=== PATIENT | male | born 1950 | race Caucasian/White ===

== ENCOUNTER 2017-05-18 10:43 | Inpatient (IN) | payer OTHER ==
[2017-05-18 11:25] LABS: BASOPHIL 0.5 % (0-2.0); EOSINOPHIL 1.4 % (0-4.5); MCH 30.2 pg (25.7-33.7); MCHC 33.2 g/dl (32.0-35.9); NEUTROPHILS 61.1 % (42.8-82.8); PLATELET COUNT 176 K/MM3 (134-434); RDW 14.6 % (11.9-15.9); WHITE BLOOD COUNT 7.7 K/mm3 (4.0-10.0)
--- NOTE | 2017-05-18 11:34 | PDOC ---
Attending Attestation - Resident Resident Name: Mercedes Lerner - ED Attending Attestation I have performed the following: I have examined & evaluated the patient, The case was reviewed & discussed with the resident, I agree w/resident's findings & plan, Exceptions are as noted - HPI HPI: 05/18/17 11:34 67-year-old male with no medical history presents with dyspnea on exertion. Stated at the symptoms were worse over the 2 months but particularly today. Denies chest pain. Reports some increasing abdominal distention but denies orthopnea or proximal nocturnal dyspnea. Denies abdominal tenderness. - Physicial Exam PE: 05/18/17 11:35 GENERAL: Awake, alert, and fully oriented, in no acute distress. HEAD: No signs of trauma EYES: PERRLA, EOMI, sclera anicteric, conjunctiva clear ENT: Auricles normal inspection, hearing grossly normal, nares patent, oropharynx clear without exudates. NECK: Normal ROM, supple, no lymphadenopathy, JVD, or masses LUNGS: Breath sounds equal, clear to auscultation bilaterally. No wheezes, and no crackles HEART: Regular rate and rhythm, normal S1 and S2, no murmurs, rubs or gallops. Bradycardic ABDOMEN: Soft, nontender, normoactive bowel sounds. No guarding, no rebound. No masses EXTREMITIES: Normal range of motion. No clubbing or cyanosis. No cords, erythema , or tenderness. Trace lower extremity edema b/l. NEUROLOGICAL: Cranial nerves II through XII grossly intact. Normal speech, normal gait SKIN: Warm, Dry, normal turgor, no rashes or lesions noted. - Medical Decision Making 05/18/17 11:35 Vital Signs Temp Pulse Resp BP Pulse Ox 98 F 40 L 18 158/92 99 05/18/17 10:48 05/18/17 10:48 05/18/17 10:48 05/18/17 10:48 05/18/17 10:48 Patient with a Mobitz type II. Pacer pads placed on. Labs including lites like to troponin ordered. Patient's family requests Dr. Brooke for cardiology. Will contact ICU for admission. Pt's BP stable at the moment and patient mentating. No chest pain. 05/18/17 12:57 CBC, BMP 05/18/17 11:19 05/18/17 11:19 CMP Sodium 139 mmol/L (136-145) 05/18/17 11:19 Potassium 4.4 mmol/L (3.5-5.1) 05/18/17 11:19 Chloride 103 mmol/L (98-107) 05/18/17 11:19 Carbon Dioxide 25 mmol/L (21-32) 05/18/17 11:19 Anion Gap 11 (8-16) 05/18/17 11:19 BUN 17 mg/dL (7-18) 05/18/17 11:19 Creatinine 1.2 mg/dL (0.7-1.3) 05/18/17 11:19 Creat Clearance w eGFR > 60 (>60) 05/18/17 11:19 Random Glucose 121 mg/dL (74-106) H 05/18/17 11:19 Calcium 9.2 mg/dL (8.5-10.1) 05/18/17 11:19 Phosphorus 3.4 mg/dL (2.5-4.9) 05/18/17 11:19 Magnesium 2.3 mg/dL (1.8-2.4) 05/18/17 11:19 Total Bilirubin 0.5 mg/dL (0.2-1.0) 05/18/17 11:19 AST 45 U/L (15-37) H 05/18/17 11:19 ALT 79 U/L (12-78) H 05/18/17 11:19 Alkaline Phosphatase 59 U/L (45-117) 05/18/17 11:19 Creatine Kinase 101 IU/L (39-308) 05/18/17 11:19 Troponin I < 0.02 ng/ml (0.00-0.05) 05/18/17 11:19 B-Natriuretic Peptide 270.85 pg/ml (5-125) H 05/18/17 11:19 Total Protein 7.2 g/dl (6.4-8.2) 05/18/17 11:19 Albumin 3.7 g/dl (3.4-5.0) 05/18/17 11:19 Pt seen by both DR. Huber (cards) and DR. Tucker (ICU). Accepted to the ICU. Case accepted by symphony service. Admitted to ICU under their care. Heart Score/ECG Review #1 ECG reviewed & interpreted by me at: 11:15 05/18/17 11:33 Sinus 41 with Mobitz type 2 2:1 AV conduction, RSR' in V1, no std/se, QTC 463 msec
[2017-05-18 11:37] LABS: INR 0.98 (0.82-1.09); PROTHROMBIN TIME (PATIENT) 10.8 SEC (9.98-11.88)
[2017-05-18 11:52] LABS: CREATININE 1.2 mg/dL (0.7-1.3); SGPT/ALT 79 U/L (12-78)
[2017-05-18 11:54] LABS: ALK PHOS 59 U/L (45-117); BILIRUBIN,TOTAL 0.5 mg/dL (0.2-1.0); TOT PROT 7.2 g/dl (6.4-8.2); TROPONIN I < 0.02 ng/ml (0.00-0.05)
[2017-05-18 11:55] LABS: ALBUMIN 3.7 g/dl (3.4-5.0); ANION GAP 11 (8-16); CALCIUM 9.2 mg/dL (8.5-10.1); CO2 25 mmol/L (21-32); GLUCOSE,RANDOM 121 mg/dL (74-106)
[2017-05-18 11:57] LABS: SGOT/AST 45 U/L (15-37)
--- NOTE | 2017-05-18 12:22 | EKG ---
Test Reason : Blood Pressure : / mmHG Vent. Rate : 041 BPM Atrial Rate : 081 BPM P-R Int : 160 ms QRS Dur : 122 ms QT Int : 562 ms P-R-T Axes : 060 067 015 degrees QTc Int : 463 ms SINUS RHYTHM WITH 2ND DEGREE A-V BLOCK WITH 2:1 A-V CONDUCTION POSSIBLE LEFT ATRIAL ENLARGEMENT RIGHT BUNDLE BRANCH BLOCK ABNORMAL ECG NO PREVIOUS ECGS AVAILABLE ER STAFF NOTIFIED. Confirmed by LOUIE GU MD ([id number]) on 05/18/2017 12:21:51 PM Referred By: Confirmed By:LOUIE GU MD
--- NOTE | 2017-05-18 12:26 | CON.CARD ---
Consult Consult Specialty:: Cardiology Referred by:: Dr. Tray Brasher Reason for Consultation:: Cardiac evaluation for secondary mobitz 2 AV block - History of Present Illness Chief Complaint: Shortness of breath and chest discomfort History of Present Illness: Patient is a 67 year old male with no significant past medical history who presents with complaints of shortness of breath and intermittent chest discomfort for the past 2 months. His symptoms got worse that made him come into ER today. ECG demonstrates sinus rhythm with secondary AV block, mobitz 2 ( 2:1). Cardiology consultation was called for further evaluation. Currently, he denies paroxysmal nocturnal dyspnea or orthopnea. He denies fever or chills. He denies headache or lightheadedness. He denies prior syncopal episodes. He works in the [employer] department at [employer]. - History Source History Provided By: Patient, Family Member Limitations to Obtaining History: No Limitations - Past Surgical History Additional Surgical History: Carbuncle removal - Alcohol/Substance Use Hx Alcohol Use: Yes History of Substance Use: reports: None - Smoking History Smoking history: Never smoked - Social History Usual Living Arrangement: With Spouse Home Medications - Allergies Allergies/Adverse Reactions: Allergies Allergy/AdvReac Type Severity Reaction Status Date / Time No Known Allergies Allergy Verified 05/18/17 10:54 - Home Medications Home Medications: Ambulatory Orders NK [No Known Home Medication] 05/18/17 Review of Systems - Review of Systems Constitutional: denies: Chills, Fever Cardiovascular: reports: Chest Pain, Shortness of Breath. denies: Palpitations Respiratory: reports: SOB, SOB on Exertion. denies: Cough, Hemoptysis, Orthopnea, PND Gastrointestinal: denies: Abdominal Pain, Constipation, Diarrhea, Melena, Nausea , Rectal Bleeding, Vomiting Musculoskeletal: denies: Joint Pain Neurological: denies: Dizziness, Headache, Seizure, Syncope Vital Signs: Vital Signs Temperature 98 F 05/18/17 10:48 Pulse Rate 40 L 05/18/17 11:39 Respiratory Rate 16 05/18/17 11:39 Blood Pressure 150/80 05/18/17 11:39 O2 Sat by Pulse Oximetry (%) 100 05/18/17 11:56 Neck: Yes: Supple Respiratory: Yes: CTA Bilaterally Gastrointestinal: Yes: Normal Bowel Sounds, Soft. No: Tenderness Cardiovascular: Yes: Regular Rate and Rhythm JVD: No Carotid Bruit: No PMI: Non-Displaced Heart Sounds: Yes: S1, S2 Murmur: No: Systolic Murmur, Diastolic Murmur Edema: No - Other Data Labs, Other Data: CBC, BMP 05/18/17 11:19 05/18/17 11:19 Troponin, BNP 05/18/17 05/18/17 11:19 11:19 Troponin I < 0.02 B-Natriuretic Peptide 270.85 H Laboratory Results - last 24 hr 05/18/17 05/18/17 05/18/17 11:19 11:19 11:19 WBC 7.7 RBC 4.79 Hgb 14.4 Hct 43.5 MCV 91.0 MCH 30.2 MCHC 33.2 RDW 14.6 Plt Count 176 MPV 10.0 Neutrophils % 61.1 Lymphocytes % 25.5 Monocytes % 11.5 H Eosinophils % 1.4 Basophils % 0.5 INR 0.98 Sodium 139 Potassium 4.4 Chloride 103 Carbon Dioxide 25 Anion Gap 11 BUN 17 Creatinine 1.2 Creat Clearance w eGFR > 60 Random Glucose 121 H Calcium 9.2 Total Bilirubin 0.5 AST 45 H ALT 79 H Alkaline Phosphatase 59 Creatine Kinase Troponin I B-Natriuretic Peptide 270.85 H Total Protein 7.2 Albumin 3.7 Sinus rhythm with secondary heart block with 2:1 AV block Echo: Pending Problem List - Problems (1) AV block, Mobitz II Code(s): I44.1 - ATRIOVENTRICULAR BLOCK, SECOND DEGREE (2) Chest pain Code(s): R07.9 - CHEST PAIN, UNSPECIFIED Qualifiers: Chest pain type: unspecified Qualified Code(s): R07.9 - Chest pain, unspecified (3) Dyspnea Code(s): R06.00 - DYSPNEA, UNSPECIFIED Qualifiers: Dyspnea type: shortness of breath Qualified Code(s): R06.02 - Shortness of breath Assessment/Plan 1. Dyspnea and chest pain 2. Secondary AV block - Mobitz 2:1 PLAN: 1. Admit to ICU 2. Serial cardiac enzymes 3. Transthoracic echocardiography to assess LV and valvular function 4. Permanent pacemaker insertion. Spoke with Dr. Del Kraus (hvac lead ) for PPM insertion 5. Etiology of AV block is to be explored. Rule out structural heart disease. Further plans are to follow Andrew Huber MD
[2017-05-18 12:48] LABS: MAGNESIUM 2.3 mg/dL (1.8-2.4); PHOSPHOROUS 3.4 mg/dL (2.5-4.9)
--- NOTE | 2017-05-18 12:58 | PDOC ---
History of Present Illness - General Chief Complaint: Shortness of Breath Stated Complaint: SOB Time Seen by Provider: 05/18/17 11:04 History Source: Patient Exam Limitations: No Limitations - History of Present Illness Initial Comments: 05/18/17 14:23 CC: Acute exacerbation of shortness of breath Patient is a 67 y.o. male with no PMH who presents to our facility c/o shortness of breath. Patient states he was mowing the lawn today when he suddenly felt short of breath and had some related "pulsing" chest pain that was 4/10, non-radiating. Patient and patient's (@ bedside) note patient has been c/o shortness of breath for the last 2 months, often with exertion and occasionally at rest. Patient states the chest pain is intermittent, only ocurring on 2-3 prior occasions. Patient also notes as associated abdominal distention which he believes has been present for 3-4 months. Patient notes he had recently traveled in the [place] which included a two hour plane ride. Patient also notes he takes Fish Oil and a dietary pineapple supplement daily however does not take any active prescription medications. PMH: None Past surgical: R buttock carbuncle removal FH: Denies HTN and CVD SH: (-) cigarettes; (+) alcohol - 1 glass wine daily; (-) marijuana/cocaine/ heroin NKDA Past History - Past Medical History Allergies/Adverse Reactions: Allergies Allergy/AdvReac Type Severity Reaction Status Date / Time No Known Allergies Allergy Verified 05/18/17 10:54 Home Medications: Ambulatory Orders NK [No Known Home Medication] 05/18/17 - Psycho/Social/Smoking Cessation Hx Suicidal Ideation: No Smoking History: Never smoked Information on smoking cessation initiated: No Hx Alcohol Use: Yes Review of Systems - Review of Systems Constitutional: No: Chills, Diaphoresis, Malaise, Night Sweats HEENTM: No: Blurred Vision, Double Vision, Hearing Loss, Throat Pain Respiratory: Yes: Shortness of Breath, SOB with Exertion. No: Cough, Stridor, Wheezing Cardiac (ROS): Yes: Chest Pain ("Pulsing" Non-radiating chest pain). No: Edema , Palpitations, Syncope ABD/GI: Yes: Abdominal Distended. No: Constipated, Diarrhea, Nausea, Vomiting Musculoskeletal: No: Back Pain, Gout, Muscle Pain, Muscle Weakness Integumentary: No: Bruising, Dryness, Erythema, Pruritus Neurological: No: Headache, Numbness, Tingling, Tremors Psychiatric: No: Anxiety, Depression All Other Systems: Reviewed and Negative *Physical Exam - Vital Signs Last Vital Signs Temp Pulse Resp BP Pulse Ox 98 F 40 L 16 150/80 100 05/18/17 10:48 05/18/17 11:39 05/18/17 11:39 05/18/17 11:39 05/18/17 11:56 - Physical Exam General Appearance: Yes: Nourished, Appropriately Dressed HEENT: positive: EOMI Neck: positive: Trachea midline, Supple Respiratory/Chest: positive: Lungs Clear, Normal Breath Sounds, Other (Patient is breathing comfortably (no accessory muscle use, non-labored respirations) on room air) Cardiovascular: positive: Regular Rhythm, Regular Rate, S1, S2 Gastrointestinal/Abdominal: positive: Soft, Distended Extremity: positive: Normal Capillary Refill, Normal Inspection Integumentary: positive: Normal Color, Dry, Warm Neurologic: positive: alternative financing specialist II-XII NML intact, Fully Oriented, Alert ED Treatment Course - LABORATORY CBC & Chemistry Diagram: 05/18/17 11:19 05/18/17 11:19 - ADDITIONAL ORDERS Additional order review: Laboratory Results 05/18/17 05/18/17 05/18/17 11:19 11:19 11:19 INR 0.98 Sodium 139 Potassium 4.4 Chloride 103 Carbon Dioxide 25 Anion Gap 11 BUN 17 Creatinine 1.2 Creat Clearance w eGFR > 60 Random Glucose 121 H Calcium 9.2 Phosphorus 3.4 Magnesium 2.3 Total Bilirubin 0.5 AST 45 H ALT 79 H Alkaline Phosphatase 59 Creatine Kinase 101 Troponin I < 0.02 B-Natriuretic Peptide 270.85 H Total Protein 7.2 Albumin 3.7 05/18/17 11:19 RBC 4.79 MCV 91.0 MCHC 33.2 RDW 14.6 MPV 10.0 Neutrophils % 61.1 Lymphocytes % 25.5 Monocytes % 11.5 H Eosinophils % 1.4 Basophils % 0.5 - RADIOLOGY Radiology Studies Ordered: Category Date Time Status CHEST X-RAY PORTABLE* [RAD] Stat Radiology 05/18/17 11:14 Taken Medical Decision Making - Medical Decision Making 05/18/17 14:42 Patient's EKG was significant for Mobitz II (2nd degree AV block) and transcutaneous pacer was applied. Cardiology (Dr. Huber) and Dr. Banegas (ICU ) evaluated patient and patient was admitted to ICU under the care of Dr. Dias. Patient was counseled that he would likely require surgical intervention for pacemaker placement. *DC/Admit/Observation/Transfer Diagnosis at time of Disposition: Heart block AV second degree, AV block, Mobitz II - Discharge Dispostion Condition at time of disposition: Improved Admit: Yes - Referrals - Attestations Physician Attestion: 05/18/17 12:59 I, Dr. Mercedes Lerner, attest that this document has been prepared under my direction and personally reviewed by me in its entirety. I further attest, that it accurately reflects all work, treatment, procedures and medical decision -making performed by me.
--- NOTE | 2017-05-18 13:27 | HP ---
Admitting History and Physical - Primary Care Physician PCP: Ananda Sutherland - Admission Chief Complaint: Worsening dypsnea on exertion History of Present Illness: This is a 67 year old male with no reported medical history presented to the ED with worsening shortness of breath on exertion. He was mowing the lawn today and became acute shortness of breath to which it took 3-4 minutes for him to catch his breath. This shortness of breath has been worsening over the last 2 months and today his brought him in. He denies associated chest pain, visual changes, nausea, vomiting, pedal edema, changes in urinary habits. He dose think subjectively he has gained abdominal girth. 6 weeks ago he went to see his primary and had an EKG which he says reveled no acute changes, however he did not tell his PCP he was experiencing ongoing shortness of breath. He returned from the [facility] 2 days ago, while there he did have acute sob episodes at rest and while carrying luggage. ED Course: 1. EKG Mobchris 2:1 2. Pacer pads placed 3. 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 History of Recent Travel: Yes ([facility] ) Home Medications - Allergies Allergies/Adverse Reactions: Allergies Allergy/AdvReac Type Severity Reaction Status Date / Time No Known Allergies Allergy Verified 05/18/17 10:54 - Home Medications Home Medications: Ambulatory Orders NK [No Known Home Medication] 05/18/17 Review of Systems - Review of Systems Constitutional: reports: No Symptoms Eyes: reports: No Symptoms HENT: reports: No Symptoms Neck: reports: No Symptoms Cardiovascular: reports: No Symptoms Respiratory: reports: SOB, SOB on Exertion Gastrointestinal: reports: No Symptoms Genitourinary: reports: No Symptoms Musculoskeletal: reports: No Symptoms Integumentary: reports: No Symptoms Neurological: reports: No Symptoms Endocrine: reports: No Symptoms Hematology/Lymphatic: reports: No Symptoms Psychiatric: reports: No Symptoms Physical Examination Vital Signs: Vital Signs Temperature 98 F 05/18/17 10:48 Pulse Rate 40 L 05/18/17 11:39 Respiratory Rate 16 05/18/17 11:39 Blood Pressure 150/80 05/18/17 11:39 O2 Sat by Pulse Oximetry (%) 100 05/18/17 11:56 Constitutional: Yes: Calm Eyes: Yes: Conjunctiva Clear HENT: Yes: Atraumatic Neck: Yes: Supple Cardiovascular: Yes: Bradycardia, S1, S2 Respiratory: Yes: Regular, CTA Bilaterally Gastrointestinal: Yes: Normal Bowel Sounds, Soft Renal/: Yes: WNL Musculoskeletal: Yes: WNL Extremities: Yes: WNL Edema: No Peripheral Pulses WNL: Yes Neurological: Yes: Alert, Oriented, Cran Nerves II-XII Intact Psychiatric: Yes: Alert, Oriented Labs: CBC, BMP 05/18/17 11:19 05/18/17 11:19 Imaging - Results EKG: Report Reviewed, Image Reviewed Problem List - Problems (1) AV block, Mobitz II Code(s): I44.1 - ATRIOVENTRICULAR BLOCK, SECOND DEGREE (2) Dyspnea Code(s): R06.00 - DYSPNEA, UNSPECIFIED Qualifiers: Dyspnea type: shortness of breath Qualified Code(s): R06.02 - Shortness of breath Assessment/Plan Assessment: 67 year old male admitted with worsening SOB found to be in second degree heart block 2:1 conduction. Plan: 1. Second degree AVB 2:1 conduction - Maintain pacer pads - ECHO to assess LV function - ICU monitoring - Check TSH - Trop x2 negative - Pacemaker placement by Dr. Beltran - Cardiology following 2. DVT ppx - Heparin q8 Visit type - Emergency Visit Emergency Visit: Yes Care time: The patient presented to the Emergency Department on the above date and was hospitalized for further evaluation of their emergent condition. - New Patient This patient is new to me today: Yes Date on this admission: 05/18/17 - Critical Care Critical Care patient: No
[2017-05-18 13:31] LABS: TROPONIN I < 0.02 ng/ml (0.00-0.05)
[2017-05-18 14:12] VITALS: BMI 32.7
--- NOTE | 2017-05-18 14:19 | CONSULT ---
Consult Consult Specialty:: PULM/CCM Referred by:: ER Reason for Consultation:: Heart block - History of Present Illness Chief Complaint: SOB History of Present Illness: 67 M, no significant medical history. Admitted via the ER due to worsening SOB over the past 2 months. Today while mowing the lawn he developed SOB that took several minutes to resolve. Denies the sensation of SOB. No travel history or sick contacts. No febrile illnesses or rash. No prescribed or OTC medications except Niacin. No syncopal episodes. He does snore, but no clear history of OSAS. EKG : sinus rhythm with secondary degree AV block, mobitz 2 (2:1). 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 Loss, Weakness Eyes: reports: No Symptoms HENT: reports: No Symptoms Neck: reports: No Symptoms Cardiovascular: reports: Shortness of Breath. denies: Chest Pain, Edema, Palpitations Respiratory: reports: Exercise Intolerance, Snoring, SOB, SOB on Exertion. denies: Cough, Hemoptysis, Orthopnea, Wheezing Gastrointestinal: reports: No Symptoms Genitourinary: reports: No Symptoms Breasts: reports: No Symptoms Reported Musculoskeletal: reports: No Symptoms Integumentary: reports: No Symptoms Neurological: reports: No Symptoms Endocrine: reports: No Symptoms Hematology/Lymphatic: reports: No Symptoms Psychiatric: reports: No Symptoms Physical Exam Vital Signs: Vital Signs Temperature 98 F 05/18/17 10:48 Pulse Rate 39 L 05/18/17 12:36 Respiratory Rate 12 05/18/17 12:36 Blood Pressure 149/96 05/18/17 12:36 O2 Sat by Pulse Oximetry (%) 98 05/18/17 12:36 Constitutional: Yes: Well Nourished, No Distress, Anxious Eyes: Yes: Conjunctiva Clear, EOM Intact HENT: Yes: Atraumatic, Normocephalic Neck: Yes: Supple, Trachea Midline Cardiovascular: Yes: Bradycardia Respiratory: Yes: Regular, CTA Bilaterally, On Nasal O2. No: Accessory Muscle Use, Stridor, Tachypnea, Wheezes Gastrointestinal: Yes: Normal Bowel Sounds, Soft ...Rectal Exam: Yes: Deferred Renal/: Yes: WNL Breast(s): Yes: WNL Musculoskeletal: Yes: WNL Extremities: Yes: WNL Edema: No Peripheral Pulses WNL: Yes Integumentary: Yes: WNL Wound/Incision: Yes: Clean/Dry, Well Approximated Neurological: Yes: WNL, Alert, Oriented ...Motor Strength: WNL Psychiatric: Yes: WNL, Alert, Oriented Problem List - Problems (1) AV block, Mobitz II Code(s): I44.1 - ATRIOVENTRICULAR BLOCK, SECOND DEGREE (2) Dyspnea Code(s): R06.00 - DYSPNEA, UNSPECIFIED Qualifiers: Dyspnea type: shortness of breath Qualified Code(s): R06.02 - Shortness of breath (3) Heart block AV second degree Code(s): I44.1 - ATRIOVENTRICULAR BLOCK, SECOND DEGREE Assessment/Plan Symptomatic Mobtiz type 2 AV block At present the patient is hemodynamically stable. Cardiology consult has been completed and noted. Will likely require pacing device placement Check TFTs ECHO O2 as needed Follow routine labs ICU monitoring Thank you. Dr Tucker Critical care time spent in reviewing chart, evaluating patient and formulating plan 35 min
--- NOTE | 2017-05-18 15:32 | EKG ---
Test Reason : Blood Pressure : / mmHG Vent. Rate : 040 BPM Atrial Rate : 042 BPM P-R Int : 000 ms QRS Dur : 116 ms QT Int : 646 ms P-R-T Axes : 000 061 043 degrees QTc Int : 526 ms JUNCTINAL ESCAPE RHYTHM WITH UNDERLYING COMPLETE HEART BLOCK (COMPLETE AV DISASSOCIATION) COMPLETE RIGHT BUNDLE BRANCH BLOCK NONSPECIFIC ST AND T WAVE ABNORMALITY PROLONGED QT ABNORMAL ECG WHEN COMPARED WITH ECG OF 18-MAY-2017 11:11, JUNCTIOAL ESCPE RHYTHM HAS REPLACED SINUS RHYTHM WITH SECOND DEGREE AV BLOCK. QT HAS LENGTHENED CLINICAL CORRELATION IS RECOMMENDED CCU STAFF NOTIFIED Confirmed by LOUIE GU MD ([id number]) on 05/18/2017 3:32:18 PM Referred By: Confirmed By:LOUIE GU MD
[2017-05-18] MEDS: HEPARIN NA (PORCINE) 5,000 UNITS/ML 1ML VIAL SQ SCH ×2 (17:29→21:53)
[2017-05-18] MEDS: CHLORHEXIDINE GLUCONATE 4% CLEANSER FOR DECOLONIZATION TP SCH (21:53)
[2017-05-18] MEDS: MUPIROCIN 2% TOPICAL OINTMENT FOR DECOLONIZATION NS SCH (21:54)
[2017-05-19] MEDS: HEPARIN NA (PORCINE) 5,000 UNITS/ML 1ML VIAL SQ SCH ×3 (05:50→21:34)
[2017-05-19 06:39] LABS: BASOPHIL 0.5 % (0-2.0); EOSINOPHIL 1.9 % (0-4.5); MCH 30.6 pg (25.7-33.7); MCHC 33.6 g/dl (32.0-35.9); MEAN PLT VOLUME 9.9 fl (7.5-11.1); NEUTROPHILS 59.2 % (42.8-82.8); PLATELET COUNT 167 K/MM3 (134-434); WHITE BLOOD COUNT 8.5 K/mm3 (4.0-10.0)
[2017-05-19 07:05] LABS: ALBUMIN 3.4 g/dl (3.4-5.0); ANION GAP 9 (8-16); CALCIUM 8.5 mg/dL (8.5-10.1); CO2 26 mmol/L (21-32); GLUCOSE,RANDOM 126 mg/dL (74-106); MAGNESIUM 2.1 mg/dL (1.8-2.4)
[2017-05-19 07:09] LABS: ALK PHOS 52 U/L (45-117); BILIRUBIN,TOTAL 0.7 mg/dL (0.2-1.0); CREATININE 1.2 mg/dL (0.7-1.3); PHOSPHOROUS 3.6 mg/dL (2.5-4.9); SGOT/AST 28 U/L (15-37); SGPT/ALT 64 U/L (12-78); TOT PROT 6.4 g/dl (6.4-8.2)
--- NOTE | 2017-05-19 08:17 | CON.CARD ---
Consult Consult Specialty:: EPS Referred by:: Dr. Andrew Huber Reason for Consultation:: Heart Block - History of Present Illness Chief Complaint: EPS Evaluation for Complete Heart Block History of Present Illness: Mr. Matos is a pleasant 67 year old male with htn who presented with complaints of dyspnea on exertion for the past 4-6 weeks. Upon presentation he was found to be in a 2-1 heart block with intermittent complete heart block. EPS Consultation was requested. The patient was last seen by his pmd about 2 months ago for a routine annual visit and reportedly had a normal ekg at that time. He is not on av wild blocking agents as an outpt. He has been complaining of new onset symptoms of dyspnea on exertion for about 4 -6 weeks. 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 He denies any known exposure to tick bites or prior history of lyme disease. Lyme titers have been sent but results are pending at this time. He denies any chest pain, palpitations, near or true syncope. LV function is normal on echo. 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 denies: Chills, Fever HENT: reports: No Symptoms Neck: reports: No Symptoms Cardiovascular: reports: Shortness of Breath Respiratory: denies: Cough, Hemoptysis, Orthopnea Gastrointestinal: reports: No Symptoms Musculoskeletal: reports: No Symptoms Neurological: reports: No Symptoms Psychiatric: reports: No Symptoms Vital Signs: Vital Signs Temperature 98.2 F 05/19/17 06:00 Pulse Rate 38 L 05/19/17 07:30 Respiratory Rate 18 05/19/17 07:30 Blood Pressure 170/110 05/19/17 07:30 O2 Sat by Pulse Oximetry (%) 100 05/19/17 07:31 Constitutional: Yes: Well Nourished, No Distress Eyes: Yes: WNL HENT: Yes: WNL Neck: Yes: WNL Respiratory: Yes: WNL Gastrointestinal: Yes: WNL Cardiovascular: Yes: Bradycardia JVD: No Carotid Bruit: No Heart Sounds: Yes: S1, S2 Musculoskeletal: Yes: WNL Extremities: Yes: WNL Edema: No - Other Data Labs, Other Data: CBC, BMP 05/19/17 05:25 05/19/17 05:25 INR, PTT INR 0.98 (0.82-1.09) 05/18/17 11:19 complete heart block with junctional escape Echo: Report Reviewed Ejection Fraction %: LVEF > or = 40 % Imaging - Results Chest X-ray: Report Reviewed EKG: Report Reviewed, Image Reviewed Problem List - Problems (1) Complete heart block Code(s): I44.2 - ATRIOVENTRICULAR BLOCK, COMPLETE Assessment/Plan 67 year old male with no significant pmh who presented with 4 weeks of dyspnea on exertion, fatigue, found to have mobitz II heart block with intermittent complete heart block. 05/19/17: JVD EPS: complete heart block this am with a junctional escape. AV conduction is apparent at times making appears of mobitz II intermittently. maintaining bp, hypertensive. in icu on monitor. lyme titer sent, studies pending. not on av wild blocking agents. he had a normal ekg at his pmd's office about 6 weeks ago and does spend time in the garden. extensive conversation with the patient regarding potential ppm implant. all questions answered. risks/benefits/ alternatives discussed at length. pt agreeable to proceed. - awaiting lyme studies - if lyme testing negative, plan for ppm on at 11 am. tentatively on schedule for now - keep npo after midnight tonight - keep k 4-4.5, mg 2-2.5 - no av wild blocking agents - c/w temporary pacing pads at demand rate of 30 bpm - no heparin/lovenox - vancomycin 1 gram ivss x 1 on-call to the OR - care as per cardiology, primary services Thank you for allowing me to participate in the care of this patient. Please call with any questions. Del Kraus MD [phone]
[2017-05-19 10:26] LABS: CHOLESTEROL 178 mg/dL (50-200)
[2017-05-19 10:27] LABS: TROPONIN I 0.02 ng/ml (0.00-0.05)
--- NOTE | 2017-05-19 10:32 | PN ---
Progress Note, Physician History of Present Illness: Hemodynamically stable, remains in advanced AV block with episodes of CHB. - Current Medication List Current Medications: Active Medications Chlorhexidine Gluconate (Hibiclens For Decolonization -) 1 applic TP HS [facility] Last Admin: 05/18/17 21:53 Dose: 1 applic Heparin Sodium (Porcine) (Heparin -) 5,000 unit SQ TID [facility] Last Admin: 05/19/17 05:50 Dose: 5,000 unit Mupirocin (Bactroban Ointment (For Decolonization) -) 1 applic NS BID [facility] Stop: 05/23/17 21:59 Last Admin: 05/18/17 21:54 Dose: 1 applic - Objective Vital Signs: Vital Signs Temperature 98.2 F 05/19/17 06:00 Pulse Rate 40 L 05/19/17 10:22 Respiratory Rate 18 05/19/17 09:32 Blood Pressure 154/91 05/19/17 09:32 O2 Sat by Pulse Oximetry (%) 100 05/19/17 10:22 Constitutional: Yes: No Distress, Calm Neck: Yes: Supple Cardiovascular: Yes: Bradycardia Respiratory: Yes: Regular, CTA Bilaterally Gastrointestinal: Yes: Normal Bowel Sounds, Soft Edema: No Labs: CBC, BMP 05/19/17 05:25 05/19/17 05:25 INR, PTT INR 0.98 (0.82-1.09) 05/18/17 11:19 Problem List - Problems (1) Dyspnea Code(s): R06.00 - DYSPNEA, UNSPECIFIED Qualifiers: Dyspnea type: shortness of breath Qualified Code(s): R06.02 - Shortness of breath (2) Fatigue Code(s): R53.83 - OTHER FATIGUE Qualifiers: Fatigue type: unspecified Qualified Code(s): R53.83 - Other fatigue (3) AV block, Mobitz II Code(s): I44.1 - ATRIOVENTRICULAR BLOCK, SECOND DEGREE (4) Hypertension Code(s): I10 - ESSENTIAL (PRIMARY) HYPERTENSION Qualifiers: Hypertension type: essential hypertension Qualified Code(s): I10 - Essential (primary) hypertension Assessment/Plan Echo: 05/19/2017 Normal biventricular size and fxn, mod MR, mild AR 1. Dyspnea on exertion and fatigue referable to 2. Mobitz II heart block with intermittent complete heart block and junctional escape 3. HTN/HCVD PLAN: 1. Lyme titers pending, avoid AV wild blocking agents 2. Plan for permanent pacemaker insertion by Dr. Del Kruas (fish filleter ) if lyme negative tomorrow AM 3. Pacer pads on standby, pre-op Vanco 4. Start losartan 25 qd with uptitration as tolerated
[2017-05-19] MEDS: LOSARTAN POTASSIUM 25 MG TABLET PO SCH (11:18)
--- NOTE | 2017-05-19 11:47 | PN ---
Teaching Attending Note Name of Resident: Isrrael Unger ATTENDING PHYSICIAN STATEMENT I saw and evaluated the patient. I reviewed the resident's note and discussed the case with the resident. I agree with the resident's findings and plan as documented. SUBJECTIVE: Pt seen and examined in the ICU. Remains bradycardic with 2nd degree type II AV block. No shortness of breath or chest pain. Transcutaneous pacer pads at bedside. OBJECTIVE: Last Vital Signs Temp Pulse Resp BP Pulse Ox 98.2 F 40 L 18 151/98 100 05/19/17 06:00 05/19/17 10:22 05/19/17 10:00 05/19/17 10:00 05/19/17 10:22 Intake & Output 05/16/17 05/17/17 05/18/17 05/19/17 23:59 23:59 23:59 23:59 Intake Total 240 500 Output Total 2000 1300 Balance -1760 -800 Weight 262 lb Gen: NAD at rest Heart: bradycardic, regular Lung: decreased breath sounds at the bases Abd: soft, nontender Ext: no edema CBC, BMP 05/19/17 05:25 05/19/17 05:25 Active Medications Chlorhexidine Gluconate (Hibiclens For Decolonization -) 1 applic TP HS [facility] Last Admin: 05/18/17 21:53 Dose: 1 applic Heparin Sodium (Porcine) (Heparin -) 5,000 unit SQ TID [facility] Last Admin: 05/19/17 05:50 Dose: 5,000 unit Losartan Potassium (Cozaar -) 25 mg PO DAILY [facility] Last Admin: 05/19/17 11:18 Dose: 25 mg Mupirocin (Bactroban Ointment (For Decolonization) -) 1 applic NS BID [facility] Stop: 05/23/17 21:59 Last Admin: 05/18/17 21:54 Dose: 1 applic ASSESSMENT AND PLAN: 2nd Degree type II AV Block Shortness of breath from above HTN - hold all AV wild agents - f/u Lyme titers, TFTs - for PPM in AM if remains in AV block - DVT prophylaxis
[2017-05-19 12:15] LABS: LDL CHOLESTEROL (ONLY SJRH) 101 mg/dL (5-100)
[2017-05-19 12:22] LABS: THYROID STIMULATING HORMONE 1.48 uIU/ml (0.358-3.74)
[2017-05-19] MEDS: MUPIROCIN 2% TOPICAL OINTMENT FOR DECOLONIZATION NS SCH ×2 (12:57→21:34)
--- NOTE | 2017-05-19 12:59 | PN ---
Physical Exam: SUBJECTIVE: Patient seen and examined in ICU. He says he is feeling better, the oxygen is helping. OBJECTIVE: Vital Signs Period Temp Pulse Resp BP Sys/Miranda Pulse Ox Last 24 Hr 98 F-98.4 F 37-42 16-20 134-170/47-110 100-100 PE Neuro: alert, awake, cn 2-12intact Pulm: CTAB CV: s1 s2 bradycardia no mrg Abd: s nt nd +bs Ext: warm well perfused, no le edema Laboratory Results - last 24 hr 05/19/17 05/19/17 05/19/17 05:25 05:25 05:25 WBC 8.5 RBC 4.55 Hgb 13.9 Hct 41.4 MCV 91.0 MCH 30.6 MCHC 33.6 RDW 15.0 Plt Count 167 MPV 9.9 Neutrophils % 59.2 Lymphocytes % 27.7 Monocytes % 10.7 H Eosinophils % 1.9 Basophils % 0.5 Sodium 141 Potassium 3.9 Chloride 106 Carbon Dioxide 26 Anion Gap 9 BUN 14 Creatinine 1.2 Creat Clearance w eGFR > 60 Random Glucose 126 H Hemoglobin A1c % 6.2 H Calcium 8.5 Phosphorus 3.6 Magnesium 2.1 Total Bilirubin 0.7 D AST 28 D ALT 64 Alkaline Phosphatase 52 Creatine Kinase 80 Troponin I 0.02 Total Protein 6.4 Albumin 3.4 Triglycerides 101 Cholesterol 178 Total LDL Cholesterol 101 H HDL Cholesterol 62 H TSH 1.48 Active Medications Generic Name Dose Route Start Last Admin Trade Name Freq PRN Reason Stop Dose Admin Chlorhexidine Gluconate 1 applic 05/18/17 22:00 05/18/17 21:53 Hibiclens For Decolonization - TP 1 applic HS STEPHANIE Administration Heparin Sodium (Porcine) 5,000 unit 05/18/17 14:00 05/19/17 05:50 Heparin - SQ 5,000 unit TID STEPHANIE Administration Losartan Potassium 25 mg 05/19/17 11:00 05/19/17 11:18 Cozaar - PO 25 mg DAILY STEPHANIE Administration Mupirocin 1 applic 05/18/17 22:00 05/18/17 21:54 Bactroban Ointment (For Decolonization) - NS 05/23/17 21:59 1 applic BID STEPHANIE Administration Imaging: - ECHO: normal LV size, wall motion, RV normal size, mod MR Assessment: 67 year old male admitted with worsening SOB found to be in second degree heart block 2:1 conduction. Plan: 1. Second degree AVB 2:1 conduction w/ intermittent complete heart block and junctional rhythm - Maintain pacer pads - Await lyme titer, if negative will proceed with PPM tomorrow 11AM - Start losartan 25mg daily - Vanco 1gm on way to OR in AM 2. DVT ppx - Hold AM heparin dose if PPM Problem List - Problems (1) AV block, Mobitz II Code(s): I44.1 - ATRIOVENTRICULAR BLOCK, SECOND DEGREE (2) Dyspnea Code(s): R06.00 - DYSPNEA, UNSPECIFIED Qualifiers: Dyspnea type: shortness of breath Qualified Code(s): R06.02 - Shortness of breath Visit type - Emergency Visit Emergency Visit: Yes ED Registration Date: 05/18/17 Care time: The patient presented to the Emergency Department on the above date and was hospitalized for further evaluation of their emergent condition. - New Patient This patient is new to me today: No - Critical Care Critical Care patient: No
--- NOTE | 2017-05-19 13:00 | EKG ---
Test Reason : Blood Pressure : / mmHG Vent. Rate : 040 BPM Atrial Rate : 080 BPM P-R Int : 158 ms QRS Dur : 126 ms QT Int : 576 ms P-R-T Axes : 047 067 014 degrees QTc Int : 469 ms SINUS RHYTHM WITH 2ND DEGREE A-V BLOCK WITH 2:1 A-V CONDUCTION RIGHT BUNDLE BRANCH BLOCK T WAVE ABNORMALITY, CONSIDER INFERIOR ISCHEMIA ABNORMAL ECG WHEN COMPARED WITH ECG OF 18-MAY-2017 13:11, PREVIOUS ECG HAS UNDETERMINED RHYTHM, NEEDS REVIEW RIGHT BUNDLE BRANCH BLOCK HAS REPLACED INCOMPLETE RIGHT BUNDLE BRANCH BLOCK Confirmed by LAURENT ATKINSON MD ([id number]) on 05/19/2017 12:59:36 PM Referred By: Addy ROWELL Confirmed By:LAURENT ATKINSON MD
--- NOTE | 2017-05-19 15:04 | PN ---
Physical Exam: SUBJECTIVE: Patient seen and examined at bedside in ICU. Pt feels well while at rest and has no SOB at rest. He states when he moves around in bed he gets very mildly SOB at this time. He denies CP, palpitations, CAI, light-headedness, dizziness, abd pain, N/V/F/C. OBJECTIVE: Vital Signs Temperature 98.2 F 05/19/17 06:00 Pulse Rate 44 L 05/19/17 12:58 Respiratory Rate 18 05/19/17 12:58 Blood Pressure 145/92 05/19/17 12:58 O2 Sat by Pulse Oximetry (%) 100 05/19/17 10:22 GENERAL: The patient is awake, alert, and fully oriented, in no acute distress. HEAD: Normal with no signs of trauma. EYES: extraocular movements intact, sclera anicteric, conjunctiva clear. No ptosis. ENT: Ears normal, nares patent NECK: Trachea midline, full range of motion LUNGS: Breath sounds equal, clear to auscultation bilaterally, no wheezes, no crackles, no accessory muscle use. HEART: Bradycardic, S1, S2 without murmur, rub or gallop. ABDOMEN: Soft, nontender, nondistended, normoactive bowel sounds, no guarding, no rebound, no hepatosplenomegaly, no masses. EXTREMITIES: warm, well-perfused, no edema. NEUROLOGICAL: Normal speech, gait not observed. PSYCH: Normal mood, normal affect. SKIN: Warm, dry Laboratory Results - last 24 hr 05/19/17 05/19/17 05/19/17 05:25 05:25 05:25 WBC 8.5 RBC 4.55 Hgb 13.9 Hct 41.4 MCV 91.0 MCH 30.6 MCHC 33.6 RDW 15.0 Plt Count 167 MPV 9.9 Neutrophils % 59.2 Lymphocytes % 27.7 Monocytes % 10.7 H Eosinophils % 1.9 Basophils % 0.5 Sodium 141 Potassium 3.9 Chloride 106 Carbon Dioxide 26 Anion Gap 9 BUN 14 Creatinine 1.2 Creat Clearance w eGFR > 60 Random Glucose 126 H Hemoglobin A1c % 6.2 H Calcium 8.5 Phosphorus 3.6 Magnesium 2.1 Total Bilirubin 0.7 D AST 28 D ALT 64 Alkaline Phosphatase 52 Creatine Kinase 80 Troponin I 0.02 Total Protein 6.4 Albumin 3.4 Triglycerides 101 Cholesterol 178 Total LDL Cholesterol 101 H HDL Cholesterol 62 H TSH 1.48 05/19/17 05/19/17 06:00 09:20 WBC RBC Hgb Hct MCV MCH MCHC RDW Plt Count MPV Neutrophils % Lymphocytes % Monocytes % Eosinophils % Basophils % Sodium Potassium Chloride Carbon Dioxide Anion Gap BUN Creatinine Creat Clearance w eGFR Random Glucose Hemoglobin A1c % Calcium Phosphorus Magnesium Total Bilirubin AST ALT Alkaline Phosphatase Creatine Kinase Cancelled Troponin I Cancelled Total Protein Albumin Triglycerides Cancelled Cholesterol Cancelled Total LDL Cholesterol Cancelled HDL Cholesterol Cancelled TSH Cancelled Imaging: CXR: No acute pathology Active Medications Generic Name Dose Route Start Last Admin Trade Name Nashq PRN Reason Stop Dose Admin Chlorhexidine Gluconate 1 applic 05/18/17 22:00 05/18/17 21:53 Hibiclens For Decolonization - TP 1 applic HS STEPHANIE Administration Heparin Sodium (Porcine) 5,000 unit 05/18/17 14:00 05/19/17 13:24 Heparin - SQ 5,000 unit TID STEPHANIE Administration Losartan Potassium 25 mg 05/19/17 11:00 05/19/17 11:18 Cozaar - PO 25 mg DAILY STEPHANIE Administration Mupirocin 1 applic 05/18/17 22:00 05/19/17 12:57 Bactroban Ointment (For Decolonization) - NS 05/23/17 21:59 1 applic BID STEPHANIE Administration ASSESSMENT/PLAN: 67 y/o M with no PMH presents to ER for SOB on exertion, found to have 3rd degree heart block (currently in mobitz type 2) and admitted to the ICU. -Neuro -AAOx3, no light-headedness, dizziness, LOC -C/V -Mobitz type 2 / complete heart block -pt now in mobitz type 2, was previously in complete heart block -Transcutaneous pacing currently, transvenous pacemaker placement if lyme negative on . -f/u Lyme titers -Cardiology on board -HTN -Losartan 25 mg PO qd -Prophylaxis -DVT: Heparin 5000 units sq TID -FEN -No fluids at this time -Monitor electrolytes -Sodium controlled diet -Dispo -Monitor in ICU Problem List - Problems (1) AV block, Mobitz II Code(s): I44.1 - ATRIOVENTRICULAR BLOCK, SECOND DEGREE (2) Dyspnea Code(s): R06.00 - DYSPNEA, UNSPECIFIED Qualifiers: Dyspnea type: shortness of breath Qualified Code(s): R06.02 - Shortness of breath (3) Hypertension Code(s): I10 - ESSENTIAL (PRIMARY) HYPERTENSION Qualifiers: Hypertension type: essential hypertension Qualified Code(s): I10 - Essential (primary) hypertension Visit type - Emergency Visit Emergency Visit: Yes ED Registration Date: 05/18/17 Care time: The patient presented to the Emergency Department on the above date and was hospitalized for further evaluation of their emergent condition. - New Patient This patient is new to me today: Yes Date on this admission: 05/19/17 - Critical Care Critical Care patient: Yes Total Critical Care Time (in minutes): 35 Critical Care Statement: The care of this patient involved high complexity decision making to prevent further life threatening deterioration of the patient 's condition and/or to evalute & treat vital organ system(s) failure or risk of failure.
[2017-05-19] MEDS: CHLORHEXIDINE GLUCONATE 4% CLEANSER FOR DECOLONIZATION TP SCH (21:34)
[2017-05-20] MEDS: HEPARIN NA (PORCINE) 5,000 UNITS/ML 1ML VIAL SQ SCH ×3 (06:33→21:23)
[2017-05-20 07:17] LABS: ANION GAP 10 (8-16); CALCIUM 8.5 mg/dL (8.5-10.1); CO2 27 mmol/L (21-32); CREATININE 1.2 mg/dL (0.7-1.3); GLUCOSE,RANDOM 103 mg/dL (74-106)
--- NOTE | 2017-05-20 09:18 | PN ---
Physical Exam: SUBJECTIVE: Patient seen and examined at bedside in ICU. Pt offers no complaints at this time. He denies N/V/F/C, SOB at rest, CP, edema. No acute events overnight. Is interested in figuring out underlying cause of his heart block. OBJECTIVE: Vital Signs Temperature 98.4 F 05/20/17 06:00 Pulse Rate 32 L 05/20/17 02:00 Respiratory Rate 17 05/20/17 02:00 Blood Pressure 115/74 05/20/17 06:00 O2 Sat by Pulse Oximetry (%) 100 05/19/17 19:30 GENERAL: The patient is awake, alert, and fully oriented, in no acute distress. HEAD: Normal with no signs of trauma. EYES: extraocular movements intact, sclera anicteric, conjunctiva clear. No ptosis. ENT: Ears normal, nares patent NECK: Trachea midline, full range of motion LUNGS: Breath sounds equal, clear to auscultation bilaterally, no wheezes, no crackles, no accessory muscle use. HEART: Bradycardic, S1, S2 without murmur, rub or gallop. ABDOMEN: Soft, nontender, nondistended, normoactive bowel sounds, no guarding, no rebound, no hepatosplenomegaly, no masses. EXTREMITIES: warm, well-perfused, no edema. NEUROLOGICAL: Normal speech, gait not observed. PSYCH: Normal mood, normal affect. SKIN: Warm, dry Laboratory Results - last 24 hr 05/19/17 05/19/17 05/19/17 05:25 06:00 09:20 Sodium 141 Potassium 3.9 Chloride 106 Carbon Dioxide 26 Anion Gap 9 BUN 14 Creatinine 1.2 Creat Clearance w eGFR > 60 Random Glucose 126 H Calcium 8.5 Phosphorus 3.6 Magnesium 2.1 Total Bilirubin 0.7 D AST 28 D ALT 64 Alkaline Phosphatase 52 Creatine Kinase 80 Cancelled Troponin I 0.02 Cancelled Total Protein 6.4 Albumin 3.4 Triglycerides 101 Cancelled Cholesterol 178 Cancelled Total LDL Cholesterol 101 H Cancelled HDL Cholesterol 62 H Cancelled TSH 1.48 Cancelled 05/20/17 05:15 Sodium 142 Potassium 4.4 Chloride 105 Carbon Dioxide 27 Anion Gap 10 BUN 16 Creatinine 1.2 Creat Clearance w eGFR Random Glucose 103 Calcium 8.5 Phosphorus Magnesium Total Bilirubin AST ALT Alkaline Phosphatase Creatine Kinase Troponin I Total Protein Albumin Triglycerides Cholesterol Total LDL Cholesterol HDL Cholesterol TSH Laboratory Tests 05/18/17 11:00 Lyme Screen IgG & IgM Pending Active Medications Generic Name Dose Route Start Last Admin Trade Name Micky PRN Reason Stop Dose Admin Chlorhexidine Gluconate 1 applic 05/18/17 22:00 05/19/17 21:34 Hibiclens For Decolonization - TP 1 applic HS STEPHANIE Administration Heparin Sodium (Porcine) 5,000 unit 05/18/17 14:00 05/20/17 06:33 Heparin - SQ 5,000 unit TID STEPHANIE Administration Losartan Potassium 25 mg 05/19/17 11:00 05/19/17 11:18 Cozaar - PO 25 mg DAILY STEPHANIE Administration Mupirocin 1 applic 05/18/17 22:00 05/19/17 21:34 Bactroban Ointment (For Decolonization) - NS 05/23/17 21:59 1 applic BID STEPHANIE Administration ASSESSMENT/PLAN: 67 y/o M with no PMH presents to ER for SOB on exertion, found to have 3rd degree heart block (currently in mobitz type 2) and admitted to the ICU. -Neuro -AAOx3, no light-headedness, dizziness, LOC -C/V -Mobitz type 2 / complete heart block -pt now in mobitz type 2, was previously in complete heart block -Transcutaneous pacing currently, transvenous pacemaker placement if lyme negative. -Awaiting Lyme IgG and IgM -f/u Lyme titers -Cardiology / EPS on board -HTN -Losartan 25 mg PO qd -Prophylaxis -DVT: Heparin 5000 units sq TID -FEN -No fluids at this time -Monitor electrolytes -Sodium controlled diet -Dispo -Can be monitored on tele Problem List - Problems (1) AV block, Mobitz II Code(s): I44.1 - ATRIOVENTRICULAR BLOCK, SECOND DEGREE (2) Dyspnea Code(s): R06.00 - DYSPNEA, UNSPECIFIED Qualifiers: Dyspnea type: shortness of breath Qualified Code(s): R06.02 - Shortness of breath (3) Hypertension Code(s): I10 - ESSENTIAL (PRIMARY) HYPERTENSION Qualifiers: Hypertension type: essential hypertension Qualified Code(s): I10 - Essential (primary) hypertension Visit type - Emergency Visit Emergency Visit: Yes ED Registration Date: 05/18/17 Care time: The patient presented to the Emergency Department on the above date and was hospitalized for further evaluation of their emergent condition. - New Patient This patient is new to me today: No - Critical Care Critical Care patient: Yes Total Critical Care Time (in minutes): 35 Critical Care Statement: The care of this patient involved high complexity decision making to prevent further life threatening deterioration of the patient 's condition and/or to evalute & treat vital organ system(s) failure or risk of failure.
[2017-05-20] MEDS: MUPIROCIN 2% TOPICAL OINTMENT FOR DECOLONIZATION NS SCH ×2 (10:12→21:23)
[2017-05-20] MEDS: LOSARTAN POTASSIUM 25 MG TABLET PO SCH (10:12)
--- NOTE | 2017-05-20 10:31 | PN ---
Progress Note, Physician History of Present Illness: Hemodynamically stable, remains in advanced AV block with episodes of CHB. - Current Medication List Current Medications: Active Medications Chlorhexidine Gluconate (Hibiclens For Decolonization -) 1 applic TP HS [facility] Last Admin: 05/19/17 21:34 Dose: 1 applic Heparin Sodium (Porcine) (Heparin -) 5,000 unit SQ TID [facility] Last Admin: 05/20/17 06:33 Dose: 5,000 unit Losartan Potassium (Cozaar -) 25 mg PO DAILY [facility] Last Admin: 05/20/17 10:12 Dose: 25 mg Mupirocin (Bactroban Ointment (For Decolonization) -) 1 applic NS BID [facility] Stop: 05/23/17 21:59 Last Admin: 05/20/17 10:12 Dose: 1 applic - Objective Vital Signs: Vital Signs Temperature 98.4 F 05/20/17 06:00 Pulse Rate 32 L 05/20/17 02:00 Respiratory Rate 17 05/20/17 02:00 Blood Pressure 115/74 05/20/17 06:00 O2 Sat by Pulse Oximetry (%) 100 05/19/17 19:30 Constitutional: Yes: No Distress, Calm Neck: Yes: Supple Cardiovascular: Yes: Regular Rate and Rhythm Respiratory: Yes: Regular, CTA Bilaterally, On Nasal O2 Gastrointestinal: Yes: Normal Bowel Sounds, Soft Edema: No Labs: CBC, BMP 05/19/17 05:25 05/20/17 05:15 INR, PTT INR 0.98 (0.82-1.09) 05/18/17 11:19 Problem List - Problems (1) Dyspnea Code(s): R06.00 - DYSPNEA, UNSPECIFIED Qualifiers: Dyspnea type: shortness of breath Qualified Code(s): R06.02 - Shortness of breath (2) Fatigue Code(s): R53.83 - OTHER FATIGUE Qualifiers: Fatigue type: unspecified Qualified Code(s): R53.83 - Other fatigue (3) AV block, Mobitz II Code(s): I44.1 - ATRIOVENTRICULAR BLOCK, SECOND DEGREE (4) Hypertension Code(s): I10 - ESSENTIAL (PRIMARY) HYPERTENSION Qualifiers: Hypertension type: essential hypertension Qualified Code(s): I10 - Essential (primary) hypertension Assessment/Plan Echo: 05/19/2017 Normal biventricular size and fxn, mod MR, mild AR 1. Dyspnea on exertion and fatigue referable to 2. Mobitz II heart block with intermittent complete heart block and junctional escape 3. HTN/HCVD PLAN: 1. Lyme titers pending, avoid AV wild blocking agents 2. Plan for permanent pacemaker insertion by Dr. Del Kraus (placement officer ) pending lyme serologies 3. Pacer pads on standby, pre-op Vanco 4. Continue losartan 25 qd with uptitration as tolerated 5. May transfer to telemetry
--- NOTE | 2017-05-20 10:47 | PN ---
Physical Exam: SUBJECTIVE: Patient seen and examined in ICU. He is feeling better, his abdomen girth has decreased, he would like to walk about. OBJECTIVE: Vital Signs Period Temp Pulse Resp BP Sys/Miranda Pulse Ox Last 24 Hr 98 F-98.4 F 32-46 17-18 115-161/74-99 100 PE Neuro: alert, awake, cn 2-12intact Pulm: CTAB CV: s1 s2 bradycardia Abd: s nt nd + bs Ext: warm, no le edema Skin: color returned to cheeks Laboratory Results - last 24 hr 05/19/17 05/20/17 05:25 05:15 Sodium 141 142 Potassium 3.9 4.4 Chloride 106 105 Carbon Dioxide 26 27 Anion Gap 9 10 BUN 14 16 Creatinine 1.2 1.2 Creat Clearance w eGFR > 60 Random Glucose 126 H 103 Calcium 8.5 8.5 Phosphorus 3.6 Magnesium 2.1 Total Bilirubin 0.7 D AST 28 D ALT 64 Alkaline Phosphatase 52 Creatine Kinase 80 Troponin I 0.02 Total Protein 6.4 Albumin 3.4 Triglycerides 101 Cholesterol 178 Total LDL Cholesterol 101 H HDL Cholesterol 62 H TSH 1.48 Active Medications Generic Name Dose Route Start Last Admin Trade Name Nashq PRN Reason Stop Dose Admin Chlorhexidine Gluconate 1 applic 05/18/17 22:00 05/19/17 21:34 Hibiclens For Decolonization - TP 1 applic HS STEPHANIE Administration Heparin Sodium (Porcine) 5,000 unit 05/18/17 14:00 05/20/17 06:33 Heparin - SQ 5,000 unit TID STEPHANIE Administration Losartan Potassium 25 mg 05/19/17 11:00 05/20/17 10:12 Cozaar - PO 25 mg DAILY STEPHANIE Administration Mupirocin 1 applic 05/18/17 22:00 05/20/17 10:12 Bactroban Ointment (For Decolonization) - NS 05/23/17 21:59 1 applic BID STEPHANIE Administration Imaging: - ECHO: normal LV size, wall motion, RV normal size, mod MR Assessment: 67 year old male admitted with worsening SOB found to be in second degree heart block 2:1 conduction. Plan: 1. Second degree AVB 2:1 conduction w/ intermittent complete heart block and junctional rhythm - Maintain pacer pads - Await lyme titer, placed late last night, results expected tomorrow or Wednesday - Call lab keren [phone] [facility] ID# [id number] - Losartan 25mg daily - Vanco 1gm (if/when going to OR) - D/w Dr. Kraus, if results are negative over the weekend, can do weekend placement 2. DVT ppx - Resume heparin q8 Problem List - Problems (1) AV block, Mobitz II Code(s): I44.1 - ATRIOVENTRICULAR BLOCK, SECOND DEGREE (2) Dyspnea Code(s): R06.00 - DYSPNEA, UNSPECIFIED Qualifiers: Dyspnea type: shortness of breath Qualified Code(s): R06.02 - Shortness of breath Visit type - Emergency Visit Emergency Visit: Yes ED Registration Date: 05/18/17 Care time: The patient presented to the Emergency Department on the above date and was hospitalized for further evaluation of their emergent condition. - New Patient This patient is new to me today: No - Critical Care Critical Care patient: No
--- NOTE | 2017-05-20 10:51 | PN ---
Teaching Attending Note Name of Resident: Isrrael Unger ATTENDING PHYSICIAN STATEMENT I saw and evaluated the patient. I reviewed the resident's note and discussed the case with the resident. I agree with the resident's findings and plan as documented. SUBJECTIVE: Pt seen and examined in the ICU. Remains in advanced AV block. Denies shortness of breath or chest pain. OBJECTIVE: Last Vital Signs Temp Pulse Resp BP Pulse Ox 97.9 F 41 L 12 136/77 100 05/20/17 10:00 05/20/17 10:00 05/20/17 10:00 05/20/17 10:00 05/19/17 19:30 Intake & Output 05/17/17 05/18/17 05/19/17 05/20/17 23:59 23:59 23:59 23:59 Intake Total 240 1000 0 Output Total 1999 2700 600 Balance -1760 -1700 -600 Weight 262 lb Gen: NAD at rest Heart: bradycardic, regular Lung: decreased breath sounds at the bases Abd: soft, nontender Ext: no edema CBC, BMP 05/19/17 05:25 05/20/17 05:15 Active Medications Chlorhexidine Gluconate (Hibiclens For Decolonization -) 1 applic TP HS [facility] Last Admin: 05/19/17 21:34 Dose: 1 applic Heparin Sodium (Porcine) (Heparin -) 5,000 unit SQ TID [facility] Last Admin: 05/20/17 06:33 Dose: 5,000 unit Losartan Potassium (Cozaar -) 25 mg PO DAILY [facility] Last Admin: 05/20/17 10:12 Dose: 25 mg Mupirocin (Bactroban Ointment (For Decolonization) -) 1 applic NS BID [facility] Stop: 05/23/17 21:59 Last Admin: 05/20/17 10:12 Dose: 1 applic ASSESSMENT AND PLAN: 2nd Degree type II AV Block Shortness of breath from above HTN - hold all AV wild agents - f/u Lyme titers - for PPM if titers negative - DVT prophylaxis - can monitor on telemetry
[2017-05-20] MEDS: CHLORHEXIDINE GLUCONATE 4% CLEANSER FOR DECOLONIZATION TP SCH (21:23)
[2017-05-21 07:34] LABS: ANION GAP 6 (8-16); CO2 29 mmol/L (21-32); CREATININE 1.2 mg/dL (0.7-1.3); GLUCOSE,RANDOM 91 mg/dL (74-106)
--- NOTE | 2017-05-21 08:11 | PN ---
Progress Note (short form) - Note Progress Note: SUBJECTIVE: The patient was seen and examined in the ICU, remains in advanced AV block. He is NPO for PPM placement today Current Medications Generic Name Dose Route Start Last Admin Trade Name Micky PRN Reason Stop Dose Admin Chlorhexidine Gluconate 1 applic 05/18/17 22:00 05/20/17 21:23 Hibiclens For Decolonization - TP 1 applic HS STEPHANIE Administration Heparin Sodium (Porcine) 5,000 unit 05/18/17 14:00 05/20/17 21:23 Heparin - SQ 5,000 unit TID STEPHANIE Administration Losartan Potassium 25 mg 05/19/17 11:00 05/20/17 10:12 Cozaar - PO 25 mg DAILY STEPHANIE Administration Mupirocin 1 applic 05/18/17 22:00 05/20/17 21:23 Bactroban Ointment (For Decolonization) - NS 05/23/17 21:59 1 applic BID STEPHANIE Administration OBJECTIVE: Vital Signs Period Temp Pulse Resp BP Sys/Miranda Pulse Ox Last 24 Hr 97.7 F-98.7 F 33-70 10-19 111-145/61-82 100-100 Physical Exam: General: NAD, A&Ox3 Lungs: CTA bilaterally Heart: Bradycardia, S1S2 Abd: Soft, non-tender, non-distended. Normoactive bowel sounds Ext: Warm, well-perfused. 2+ DP/PT bilaterally Neuro: CN 2-12 intact CBCD WBC 8.5 K/mm3 (4.0-10.0) 05/19/17 05:25 RBC 4.55 M/mm3 (4.00-5.60) 05/19/17 05:25 Hgb 13.9 GM/dL (11.7-16.9) 05/19/17 05:25 Hct 41.4 % (35.4-49) 05/19/17 05:25 MCV 91.0 fl (80-96) 05/19/17 05:25 MCHC 33.6 g/dl (32.0-35.9) 05/19/17 05:25 RDW 15.0 % (11.9-15.9) 05/19/17 05:25 Plt Count 167 K/MM3 (134-434) 05/19/17 05:25 MPV 9.9 fl (7.5-11.1) 05/19/17 05:25 CMP Sodium 140 mmol/L (136-145) 05/21/17 05:15 Potassium 4.5 mmol/L (3.5-5.1) 05/21/17 05:15 Chloride 105 mmol/L (98-107) 05/21/17 05:15 Carbon Dioxide 29 mmol/L (21-32) 05/21/17 05:15 Anion Gap 6 (8-16) L 05/21/17 05:15 BUN 17 mg/dL (7-18) 05/21/17 05:15 Creatinine 1.2 mg/dL (0.7-1.3) 05/21/17 05:15 Creat Clearance w eGFR > 60 (>60) 05/19/17 05:25 Random Glucose 91 mg/dL (74-106) 05/21/17 05:15 Calcium 9.0 mg/dL (8.5-10.1) 05/21/17 05:15 Total Bilirubin 0.7 mg/dL (0.2-1.0) D 05/19/17 05:25 AST 28 U/L (15-37) D 05/19/17 05:25 ALT 64 U/L (12-78) 05/19/17 05:25 Alkaline Phosphatase 52 U/L (45-117) 05/19/17 05:25 Total Protein 6.4 g/dl (6.4-8.2) 05/19/17 05:25 Albumin 3.4 g/dl (3.4-5.0) 05/19/17 05:25 CARDIAC ENZYMES Creatine Kinase 80 IU/L (39-308) 05/19/17 05:25 Troponin I 0.02 ng/ml (0.00-0.05) 05/19/17 05:25 Imaging: - ECHO: normal LV size, wall motion, RV normal size, mod MR - Chest X-ray: No evidence of active pulmonary disease Assessment: This is a 67 year old male with no significant PMHx who presented to the ED with worsening shortness of breath and was found to have AV block 2:1 Plan: 1) Cardiology: Mobitz II heart block with intermittent complete heart block and junctional escape - For pacemaker placement today - Lyme titer negative - Maintain pacer pads - Vanco 1g monotyper to OR - Appreciate cardiology consult - Appreciate CT surgery consult HTN - Continue Losartan 2) F/E/N: - NPO for PPM today - Monitor electrolytes 3) Prophylaxis: - Hold all chemical DVT prophylaxis 2/2 surgery today 4) Dispo: - Requires continued inpatient care CODE STATUS: FULL CODE Visit type - Emergency Visit Emergency Visit: Yes ED Registration Date: 05/18/17 Care time: The patient presented to the Emergency Department on the above date and was hospitalized for further evaluation of their emergent condition. - New Patient This patient is new to me today: Yes Date on this admission: 05/21/17 - Critical Care Critical Care patient: Yes Total Critical Care Time (in minutes): 35 Critical Care Statement: The care of this patient involved high complexity decision making to prevent further life threatening deterioration of the patient 's condition and/or to evalute & treat vital organ system(s) failure or risk of failure.
--- NOTE | 2017-05-21 09:43 | PN ---
Progress Note, Physician History of Present Illness: Hemodynamically stable, remains in advanced AV block with episodes of CHB. - Current Medication List Current Medications: Active Medications Chlorhexidine Gluconate (Hibiclens For Decolonization -) 1 applic TP HS [facility] Last Admin: 05/20/17 21:23 Dose: 1 applic Heparin Sodium (Porcine) (Heparin -) 5,000 unit SQ TID [facility] Last Admin: 05/20/17 21:23 Dose: 5,000 unit Losartan Potassium (Cozaar -) 25 mg PO DAILY [facility] Last Admin: 05/20/17 10:12 Dose: 25 mg Mupirocin (Bactroban Ointment (For Decolonization) -) 1 applic NS BID [facility] Stop: 05/23/17 21:59 Last Admin: 05/20/17 21:23 Dose: 1 applic - Objective Vital Signs: Vital Signs Temperature 97.8 F 05/21/17 06:00 Pulse Rate 33 L 05/21/17 06:00 Respiratory Rate 18 05/21/17 06:00 Blood Pressure 118/66 05/21/17 06:00 O2 Sat by Pulse Oximetry (%) 100 05/20/17 19:32 Constitutional: Yes: No Distress, Calm Neck: Yes: Supple Cardiovascular: Yes: Regular Rate and Rhythm, Murmur (2/6 SM) Respiratory: Yes: Regular, CTA Bilaterally Gastrointestinal: Yes: Normal Bowel Sounds, Soft Edema: No Labs: CBC, BMP 05/19/17 05:25 05/21/17 05:15 INR, PTT INR 0.98 (0.82-1.09) 05/18/17 11:19 Problem List - Problems (1) Dyspnea Code(s): R06.00 - DYSPNEA, UNSPECIFIED Qualifiers: Dyspnea type: shortness of breath Qualified Code(s): R06.02 - Shortness of breath (2) Fatigue Code(s): R53.83 - OTHER FATIGUE Qualifiers: Fatigue type: unspecified Qualified Code(s): R53.83 - Other fatigue (3) AV block, Mobitz II Code(s): I44.1 - ATRIOVENTRICULAR BLOCK, SECOND DEGREE (4) Hypertension Code(s): I10 - ESSENTIAL (PRIMARY) HYPERTENSION Qualifiers: Hypertension type: essential hypertension Qualified Code(s): I10 - Essential (primary) hypertension Assessment/Plan Echo: 05/19/2017 Normal biventricular size and fxn, mod MR, mild AR 1. Dyspnea on exertion and fatigue referable to 2. Mobitz II heart block with intermittent complete heart block and junctional escape 3. HTN/HCVD PLAN: 1. Lyme titers negative, avoid AV wild blocking agents 2. Plan for permanent pacemaker insertion by Dr. Del Kraus (event executive ) today 3. Pacer pads on standby, pre-op Vanco 4. Continue losartan 25 qd with uptitration as tolerated 5. May transfer to telemetry after PPM
[2017-05-21] MEDS: MUPIROCIN 2% TOPICAL OINTMENT FOR DECOLONIZATION NS SCH ×2 (10:20→22:48)
[2017-05-21] MEDS: LOSARTAN POTASSIUM 25 MG TABLET PO SCH ×2 (10:20→16:26)
--- NOTE | 2017-05-21 11:07 | PN ---
Progress Note (short form) - Note Progress Note: Patient seen and examined in the ICU. Remains in advanced AV block. Denies shortness of breath or chest pain. For PPM today. OBJECTIVE: Intake & Output 05/18/17 05/19/17 05/20/17 05/21/17 23:59 23:59 23:59 23:59 Intake Total 240 1000 980 Output Total 2000 2700 2000 400 Balance -1760 -1700 -1020 -400 Weight 262 lb Last Vital Signs Temp Pulse Resp BP Pulse Ox 97.8 F 33 L 18 118/66 100 05/21/17 06:00 05/21/17 06:00 05/21/17 06:00 05/21/17 06:00 05/20/17 19:32 Active Medications Chlorhexidine Gluconate (Hibiclens For Decolonization -) 1 applic TP HS [facility] Last Admin: 05/20/17 21:23 Dose: 1 applic Heparin Sodium (Porcine) (Heparin -) 5,000 unit SQ TID [facility] Last Admin: 05/20/17 21:23 Dose: 5,000 unit Losartan Potassium (Cozaar -) 25 mg PO DAILY [facility] Last Admin: 05/21/17 10:20 Dose: Not Given Mupirocin (Bactroban Ointment (For Decolonization) -) 1 applic NS BID [facility] Stop: 05/23/17 21:59 Last Admin: 05/21/17 10:20 Dose: 1 applic Gen: NAD at rest Heart: bradycardic, regular Lung: decreased breath sounds at the bases Abd: soft, nontender Ext: no edema Laboratory Results - last 24 hr 05/18/17 05/21/17 11:00 05:15 Sodium 140 Potassium 4.5 Chloride 105 Carbon Dioxide 29 Anion Gap 6 L BUN 17 Creatinine 1.2 Random Glucose 91 Calcium 9.0 Lyme Screen IgG & IgM <0.91 ASSESSMENT AND PLAN: 2nd Degree type II AV Block Shortness of breath from above HTN Lyme titer (-) - hold all AV wild agents - for PPM - DVT prophylaxis Dr Tucker Problem List - Problems (1) AV block, Mobitz II Code(s): I44.1 - ATRIOVENTRICULAR BLOCK, SECOND DEGREE (2) Dyspnea Code(s): R06.00 - DYSPNEA, UNSPECIFIED Qualifiers: Dyspnea type: shortness of breath Qualified Code(s): R06.02 - Shortness of breath (3) Heart block AV second degree Code(s): I44.1 - ATRIOVENTRICULAR BLOCK, SECOND DEGREE
[2017-05-21] MEDS ORDERED: LIDOCAINE HCL 1%, 10 MG/ML (20ML VIAL) ONE (13:18)
[2017-05-21] MEDS ORDERED: BUPIVACAINE HCL/PF 0.5% (5MG/ML) 10 ML VIAL ONE (13:19)
[2017-05-21] MEDS ORDERED: PROPOFOL 20 ML ONE ×2 (13:25→15:20)
[2017-05-21] MEDS ORDERED: LIDOCAINE HCL/PF 2% SDV 5ML VIAL ONE ×2 (13:25→15:51)
[2017-05-21] MEDS ORDERED: MIDAZOLAM HCL 2 MG/2 ML SINGLE DOSE VIAL ONE ×2 (13:26→14:25)
[2017-05-21] MEDS ORDERED: ceFAZolin SODIUM 1 GM VIAL ONE (14:24)
[2017-05-21] MEDS ORDERED: ceFAZolin SODIUM 1 GM VIAL IVPB ONE (14:26)
[2017-05-21] MEDS ORDERED: LIDOCAINE HCL 1%, 10 MG/ML (20ML VIAL) IJ ONE ×2 (14:49)
[2017-05-21] MEDS ORDERED: BUPIVACAINE HCL/PF 0.5% (5MG/ML) 10 ML VIAL IJ ONE ×2 (14:49)
[2017-05-21] MEDS ORDERED: BACITRACIN 50,000 UNITS VIAL NR ONE (15:27)
[2017-05-21] MEDS ORDERED: BACITRACIN 15 GM TUBE TOPICAL OINTMENT ONE (15:48)
[2017-05-21] MEDS ORDERED: BACITRACIN 15 GM TUBE TOPICAL OINTMENT TP ONE (15:52)
--- NOTE | 2017-05-21 16:04 | PN ---
Progress Note, Physician Chief Complaint: remains in complete heart block - Current Medication List Current Medications: Active Medications Chlorhexidine Gluconate (Hibiclens For Decolonization -) 1 applic TP HS [facility] [place] Last Admin: 05/20/17 21:23 Dose: 1 applic Heparin Sodium (Porcine) (Heparin -) 5,000 unit SQ TID [facility] [place] Last Admin: 05/20/17 21:23 Dose: 5,000 unit Losartan Potassium (Cozaar -) 25 mg PO DAILY [facility] [place] Last Admin: 05/21/17 10:20 Dose: Not Given Mupirocin (Bactroban Ointment (For Decolonization) -) 1 applic NS BID [facility] [place] Stop: 05/23/17 21:59 Last Admin: 05/21/17 10:20 Dose: 1 applic - Objective Vital Signs: Vital Signs Temperature 98.8 F 05/21/17 08:00 Pulse Rate 40 L 05/21/17 14:00 Respiratory Rate 16 05/21/17 12:00 Blood Pressure 159/68 05/21/17 14:00 O2 Sat by Pulse Oximetry (%) 100 05/21/17 09:00 Constitutional: Yes: Well Nourished, No Distress Neck: Yes: WNL Cardiovascular: Yes: Bradycardia, Other (regular) Respiratory: Yes: WNL Gastrointestinal: Yes: WNL, Normal Bowel Sounds Extremities: Yes: WNL Edema: No Neurological: Yes: WNL Labs: CBC, BMP 05/19/17 05:25 05/21/17 05:15 INR, PTT INR 0.98 (0.82-1.09) 05/18/17 11:19 - ....Imaging EKG: Image Reviewed Problem List - Problems (1) Complete heart block Code(s): I44.2 - ATRIOVENTRICULAR BLOCK, COMPLETE Assessment/Plan 67 year old male with no significant pmh who presented with 4 weeks of dyspnea on exertion, fatigue, found to have mobitz II heart block with intermittent complete heart block. 05/21/17: JVD EPS: for ppm today due to persistent complete heart block with negative lyme titer. consent in chart. - remains npo for now - no a/c in am - for ppm today 05/19/17: JVD EPS: complete heart block this am with a junctional escape. AV conduction is apparent at times making appears of mobitz II intermittently. maintaining bp, hypertensive. in icu on monitor. lyme titer sent, studies pending. not on av wild blocking agents. he had a normal ekg at his pmd's office about 6 weeks ago and does spend time in the garden. extensive conversation with the patient regarding potential ppm implant. all questions answered. risks/benefits/ alternatives discussed at length. pt agreeable to proceed. - awaiting lyme studies - if lyme testing negative, plan for ppm on at 11 am. tentatively on schedule for now - keep npo after midnight tonight - keep k 4-4.5, mg 2-2.5 - no av wild blocking agents - c/w temporary pacing pads at demand rate of 30 bpm - no heparin/lovenox - vancomycin 1 gram ivss x 1 on-call to the OR - care as per cardiology, primary services Thank you for allowing me to participate in the care of this patient. Please call with any questions. Del Kraus MD [phone]
--- NOTE | 2017-05-21 16:09 | OP ---
Operative Note - Note: Operative Date: 05/21/17 Pre-Operative Diagnosis: complete heart block Operation: dual chamber ppm implant via the left axillary vein Implants: medtronic mri compatible dual chamber pacemaker Surgeon: Del Kraus V Anesthesiologist/[employer] ASSOCIATE: Sarah Mason Anesthesia: Local, MAC Estimated Blood Loss (mls): 10 Operative Report Dictated: Yes
[2017-05-21] MEDS ORDERED: IBUPROFEN 600 MG TABLET (FP) PO PRN (19:48)
[2017-05-21] MEDS ORDERED: morphine CARPU-JECT 4 MG/1 ML DISP.SYRIN IVPUSH PRN (19:51)
[2017-05-21] MEDS: IBUPROFEN 600 MG TABLET (FP) PO PRN (21:27)
[2017-05-21] MEDS ORDERED: CHLORHEXIDINE GLUCONATE 4% CLEANSER FOR DECOLONIZATION TP SCH (22:00)
[2017-05-22] MEDS: IBUPROFEN 600 MG TABLET (FP) PO PRN ×2 (03:33→13:10)
[2017-05-22 06:56] VITALS: PULSE 60
--- NOTE | 2017-05-22 07:49 | PN ---
Progress Note (short form) - Note Progress Note: SUBJECTIVE: The patient was seen and examined in the ICU, POD#1 from PPM placement. He reports feeling better today. He denies any chest pain, palpitations, dizziness Current Medications Generic Name Dose Route Start Last Admin Trade Name Freq PRN Reason Stop Dose Admin Chlorhexidine Gluconate 1 applic 05/21/17 22:00 05/21/17 22:48 Hibiclens For Decolonization - TP 1 applic HS STEPHANIE Administration Ibuprofen 600 mg 05/21/17 19:51 05/22/17 03:33 Motrin - PO 600 mg Q6H PRN Administration FEVER Losartan Potassium 25 mg 05/22/17 10:00 Cozaar - PO DAILY STEPHANIE Morphine Sulfate 2 mg 05/21/17 19:51 Morphine Injection - IVPUSH Q4H PRN PAIN Mupirocin 1 applic 05/21/17 22:00 05/21/17 22:48 Bactroban Ointment (For Decolonization) - NS 05/23/17 21:59 1 applic BID STEPHANIE Administration OBJECTIVE: Vital Signs Period Temp Pulse Resp BP Sys/Miranda Pulse Ox Last 24 Hr 97.4 F-98.8 F 34-70 12-17 118-159/67-108 97-100 Physical Exam: General: NAD, A&Ox3 Lungs: CTA bilaterally Heart: RRR, S1S2 Abd: Soft, non-tender, non-distended. Normoactive bowel sounds Ext: Warm, well-perfused. 2+ DP/PT bilaterally Neuro: CN 2-12 intact CBCD WBC 8.5 K/mm3 (4.0-10.0) 05/19/17 05:25 RBC 4.55 M/mm3 (4.00-5.60) 05/19/17 05:25 Hgb 13.9 GM/dL (11.7-16.9) 05/19/17 05:25 Hct 41.4 % (35.4-49) 05/19/17 05:25 MCV 91.0 fl (80-96) 05/19/17 05:25 MCHC 33.6 g/dl (32.0-35.9) 05/19/17 05:25 RDW 15.0 % (11.9-15.9) 05/19/17 05:25 Plt Count 167 K/MM3 (134-434) 05/19/17 05:25 MPV 9.9 fl (7.5-11.1) 05/19/17 05:25 CMP Sodium 140 mmol/L (136-145) 05/21/17 05:15 Potassium 4.5 mmol/L (3.5-5.1) 05/21/17 05:15 Chloride 105 mmol/L (98-107) 05/21/17 05:15 Carbon Dioxide 29 mmol/L (21-32) 05/21/17 05:15 Anion Gap 6 (8-16) L 05/21/17 05:15 BUN 17 mg/dL (7-18) 05/21/17 05:15 Creatinine 1.2 mg/dL (0.7-1.3) 05/21/17 05:15 Creat Clearance w eGFR > 60 (>60) 05/19/17 05:25 Random Glucose 91 mg/dL (74-106) 05/21/17 05:15 Calcium 9.0 mg/dL (8.5-10.1) 05/21/17 05:15 Total Bilirubin 0.7 mg/dL (0.2-1.0) D 05/19/17 05:25 AST 28 U/L (15-37) D 05/19/17 05:25 ALT 64 U/L (12-78) 05/19/17 05:25 Alkaline Phosphatase 52 U/L (45-117) 05/19/17 05:25 Total Protein 6.4 g/dl (6.4-8.2) 05/19/17 05:25 Albumin 3.4 g/dl (3.4-5.0) 05/19/17 05:25 CARDIAC ENZYMES Creatine Kinase 80 IU/L (39-308) 05/19/17 05:25 Troponin I 0.02 ng/ml (0.00-0.05) 05/19/17 05:25 Imaging: - ECHO: normal LV size, wall motion, RV normal size, mod MR - Chest X-ray: No evidence of active pulmonary disease Assessment: This is a 67 year old male with no significant PMHx who presented to the ED with worsening shortness of breath and was found to have AV block 2:1 Plan: 1) Cardiology: Mobitz II heart block with intermittent complete heart block and junctional escape - POD#1 PPM placement - Appreciate cardiology consult - Appreciate CT surgery consult HTN - Continue Losartan 2) F/E/N: - Sodium controlled diet - Monitor electrolytes 3) Prophylaxis: - OOB ambulating - TEDs bilaterally 4) Dispo: - Awaiting reevaluation from cardiology prior to discharge CODE STATUS: FULL CODE Visit type - Emergency Visit Emergency Visit: Yes ED Registration Date: 05/18/17 Care time: The patient presented to the Emergency Department on the above date and was hospitalized for further evaluation of their emergent condition. - New Patient This patient is new to me today: Yes Date on this admission: 05/22/17 - Critical Care Critical Care patient: No
[2017-05-22] MEDS: MUPIROCIN 2% TOPICAL OINTMENT FOR DECOLONIZATION NS SCH (09:05)
[2017-05-22] MEDS ORDERED: LOSARTAN POTASSIUM 25 MG TABLET PO SCH (10:00)
--- NOTE | 2017-05-22 10:23 | PN ---
Progress Note (short form) - Note Progress Note: POD #1 - s/p permanent pacemaker insertion under MAC. Pt. doing well, sitting up comfortably in chair. VSS. Pacemaker functioning properly. No complaints. No apparent anesthetic complications noted. Continue current care.
--- NOTE | 2017-05-22 12:24 | DS ---
Physical Examination Vital Signs: Vital Signs Temperature 97.9 F 05/22/17 06:00 Pulse Rate 60 05/22/17 06:00 Respiratory Rate 12 05/22/17 06:00 Blood Pressure 121/83 05/22/17 06:00 O2 Sat by Pulse Oximetry (%) 97 05/21/17 20:38 Labs: CBC, BMP 05/19/17 05:25 05/21/17 05:15 Discharge Summary Reason For Visit: SOB Current Active Problems AV block, Mobitz II (Acute) Chest pain (Acute) Dyspnea (Acute) Fatigue (Acute) Heart block AV second degree (Acute) Hypertension (Acute) Condition: Improved - Instructions Diet, Activity, Other Instructions: Please return to the ED with new, persistent, or worsening symptoms. Please follow-up with providers as indicated. Referrals: Mag Vallejo MD [Primary Care Provider] - 1 Week Del Kraus MD [Staff Physician] - (Please follow-up with Dr. Kraus within 1 week for post-operative check) Andrew Huber MD [Staff Physician] - (Please follow-up with cardiology as an outpaitient within 3-5 days. ) Disposition: HOME - Home Medications Comprehensive Discharge Medication List: Ambulatory Orders Losartan Potassium 50 mg PO DAILY #30 tablet 05/22/17
--- NOTE | 2017-05-22 12:33 | PN ---
Progress Note, Physician Chief Complaint: s/p ppm implant, doing well - Current Medication List Current Medications: Active Medications Chlorhexidine Gluconate (Hibiclens For Decolonization -) 1 applic TP HS STEPHANIE Last Admin: 05/21/17 22:48 Dose: 1 applic Ibuprofen (Motrin -) 600 mg PO Q6H PRN PRN Reason: FEVER Last Admin: 05/22/17 03:33 Dose: 600 mg Losartan Potassium (Cozaar -) 25 mg PO DAILY STEPHANIE Last Admin: 05/22/17 09:04 Dose: 25 mg Morphine Sulfate (Morphine Injection -) 2 mg IVPUSH Q4H PRN PRN Reason: PAIN Mupirocin (Bactroban Ointment (For Decolonization) -) 1 applic NS BID [facility] Stop: 05/23/17 21:59 Last Admin: 05/22/17 09:05 Dose: 1 applic - Objective Vital Signs: Vital Signs Temperature 97.9 F 05/22/17 06:00 Pulse Rate 60 05/22/17 06:00 Respiratory Rate 12 05/22/17 06:00 Blood Pressure 121/83 05/22/17 06:00 O2 Sat by Pulse Oximetry (%) 97 05/21/17 20:38 Constitutional: Yes: Well Nourished, No Distress Cardiovascular: Yes: WNL, Regular Rate and Rhythm, Other (left chest c/d/i, dressing removed. healing well.) Respiratory: Yes: WNL, Regular, CTA Bilaterally Gastrointestinal: Yes: WNL, Normal Bowel Sounds, Soft Edema: No Peripheral Pulses WNL: Yes Neurological: Yes: WNL Labs: CBC, BMP 05/19/17 05:25 05/21/17 05:15 INR, PTT INR 0.98 (0.82-1.09) 05/18/17 11:19 - ....Imaging X-ray: Report Reviewed, Image Reviewed Problem List - Problems (1) Complete heart block Code(s): I44.2 - ATRIOVENTRICULAR BLOCK, COMPLETE Assessment/Plan 67 year old male with no significant pmh who presented with 4 weeks of dyspnea on exertion, fatigue, found to have mobitz II heart block with intermittent complete heart block. 05/22/17: JVD EPS: device interrogated, functioning appropriately. feels significantly better with more energy. cxr reviewed, no ptx. - ok for d/c home today with outpt f/u in 2 weeks for wound check - post-op instructions given to pt - care as per cardiology CC: 25 minutes Thank you for allowing me to participate in the care of this patient. Please call with any questions. Del Kraus MD [phone] 05/21/17: JVD EPS: for ppm today due to persistent complete heart block with negative lyme titer. consent in chart. - remains npo for now - no a/c in am - for ppm today 05/19/17: JVD EPS: complete heart block this am with a junctional escape. AV conduction is apparent at times making appears of mobitz II intermittently. maintaining bp, hypertensive. in icu on monitor. lyme titer sent, studies pending. not on av wild blocking agents. he had a normal ekg at his pmd's office about 6 weeks ago and does spend time in the garden. extensive conversation with the patient regarding potential ppm implant. all questions answered. risks/benefits/ alternatives discussed at length. pt agreeable to proceed. - awaiting lyme studies - if lyme testing negative, plan for ppm on at 11 am. tentatively on schedule for now - keep npo after midnight tonight - keep k 4-4.5, mg 2-2.5 - no av wild blocking agents - c/w temporary pacing pads at demand rate of 30 bpm - no heparin/lovenox - vancomycin 1 gram ivss x 1 on-call to the OR - care as per cardiology, primary services Thank you for allowing me to participate in the care of this patient. Please call with any questions. Del Kraus MD [phone]
[2017-05-22] MEDS ORDERED: LOSARTAN POTASSIUM 50 MG TABLET (FP) PO SCH (12:41)
--- NOTE | 2017-05-22 12:50 | PN ---
Progress Note, Physician Chief Complaint: Not in distress History of Present Illness: Patient was seen and examined. Awake and alert. Chart was reviewed Denies chest pain, SOB or palpitations Wound healing - Current Medication List Current Medications: Active Medications Chlorhexidine Gluconate (Hibiclens For Decolonization -) 1 applic TP HS STEPHANIE Last Admin: 05/21/17 22:48 Dose: 1 applic Ibuprofen (Motrin -) 600 mg PO Q6H PRN PRN Reason: FEVER Last Admin: 05/22/17 03:33 Dose: 600 mg Losartan Potassium (Cozaar -) 50 mg PO DAILY STEPHANIE Morphine Sulfate (Morphine Injection -) 2 mg IVPUSH Q4H PRN PRN Reason: PAIN Mupirocin (Bactroban Ointment (For Decolonization) -) 1 applic NS BID STEPHANIE Stop: 05/23/17 21:59 Last Admin: 05/22/17 09:05 Dose: 1 applic - Objective Vital Signs: Vital Signs Temperature 97.9 F 05/22/17 06:00 Pulse Rate 60 05/22/17 06:00 Respiratory Rate 12 05/22/17 09:00 Blood Pressure 121/83 05/22/17 06:00 O2 Sat by Pulse Oximetry (%) 100 05/22/17 09:00 Neck: Yes: Supple Cardiovascular: Yes: Regular Rate and Rhythm, S1, S2 Respiratory: Yes: CTA Bilaterally Gastrointestinal: Yes: Normal Bowel Sounds, Soft. No: Tenderness Edema: No Labs: CBC, BMP 05/19/17 05:25 05/21/17 05:15 Problem List - Problems (1) AV block, Mobitz II Code(s): I44.1 - ATRIOVENTRICULAR BLOCK, SECOND DEGREE (2) Chest pain Code(s): R07.9 - CHEST PAIN, UNSPECIFIED Qualifiers: Chest pain type: unspecified Qualified Code(s): R07.9 - Chest pain, unspecified (3) Dyspnea Code(s): R06.00 - DYSPNEA, UNSPECIFIED Qualifiers: Dyspnea type: shortness of breath Qualified Code(s): R06.02 - Shortness of breath (4) Hypertension Code(s): I10 - ESSENTIAL (PRIMARY) HYPERTENSION Qualifiers: Hypertension type: essential hypertension Qualified Code(s): I10 - Essential (primary) hypertension (5) Pacemaker Code(s): Z95.0 - PRESENCE OF CARDIAC PACEMAKER Assessment/Plan 1. Dyspnea and chest pain 2. Secondary AV block - Mobitz 2:1 and intermittent complete AV block with junctional escape rhythm S/P dual chamber pacemaker implant 3. Hypertension PLAN: 1. Increase Losartan to 50 mg once a day 2. Pacemaker interrogation can be done as outpatient as per protocol in the office. Patient was instructed to follow up in office in 2 weeks 3. Post pacemaker guidelines were instructed. Further plans are to follow. Discussed with the hospitalist service. Discharge home today Andrew Huber MD
[2017-05-22] MEDS ORDERED: LOSARTAN POTASSIUM 25 MG TABLET PO ONE (13:00)
[2017-05-22 15:09] VITALS: TEMP 98.2
[2017-05-22 15:18] VITALS: BP 156/110
--- NOTE | 2017-05-23 18:07 | EKG ---
Test Reason : Blood Pressure : / mmHG Vent. Rate : 060 BPM Atrial Rate : 060 BPM P-R Int : 218 ms QRS Dur : 144 ms QT Int : 470 ms P-R-T Axes : 060 084 -71 degrees QTc Int : 470 ms AV SEQUENTIAL PACEMAKER FUNCTIONING APPROPRIATELY WHEN COMPARED WITH ECG OF 19-MAY-2017 09:31, ELECTRONIC VENTRICULAR PACEMAKER HAS REPLACED SINUS RHYTHM VENT. RATE HAS INCREASED BY 20 BPM Confirmed by LOUIE GU MD ([id number]) on 05/23/2017 6:06:39 PM Referred By: Norris MURRAY Confirmed By:LOUIE GU MD
--- NOTE | 2017-05-23 19:24 | OP ---
DATE OF OPERATION: 05/21/2017 PROCEDURE: Dual-chamber pacemaker implant. SURGEON: Melissa Kraus MD ANESTHESIOLOGIST: Sarah Mason MD COMPLICATIONS: None. BLOOD LOSS: Minimal. This is a 67-year-old male with a past medical history significant for hypertension, who presented with symptomatic complete heart block not on AV wild blocking agent, negative Lyme evaluation, normal LV function here for a pacemaker implant. The patient met standard criteria for implantation of a dual-chamber pacemaker. Informed consent was obtained, and adequate time for questions and answers were offered to the patient prior to the procedure. DESCRIPTION OF PROCEDURE: Preoperative antibiotics were administered. The procedure was performed during continuous ECG monitoring and with both conscious sedation and local anesthesia administered. Oxygen saturation and exhaled CO2 content were monitored continuously. The left infraclavicular region was prepped and broadly draped. Following administration of local anesthesia, an incision was made in the left deltopectoral groove. Using a combination of blunt and sharp dissection and with cautious attention to hemostasis, the cephalic vein was identified. However, the cephalic vein was ultimately felt to be too small. Under fluoroscopic guidance, axillary venous access was obtained. Using fluoroscopic guidance, two guidewires were advanced into the central venous circulation, and a hemostatic introducer was passed over the ventricular guidewire. Using fluoroscopic guidance, the ventricular lead was advanced to the right ventricle and was positioned into the upper septum where acute pacing and sensing thresholds and impedances were found to be adequate. The introducer was then removed. Utilizing a similar technique, the atrial lead was positioned into the right atrial appendage where acute pacing and sensing thresholds and impedances were found to be adequate. After assuring that lead positions were stable and that sensing and pacing thresholds and impedances were adequate following stylet removal, the proximal portion of the leads were stabilized by securing the leads to tissue at the venous access site using nonabsorbable silk sutures. A subcutaneous pocket was created contiguous with the incision site and hemostasis was secured. All sponges were removed, and the wound was irrigated with antibiotic solution. The pulse generator was then connected to the proximal portion of the pacemaker leads, and after confirming the adequacy of the of the electrical connections, the device was placed in the pocket. The incision was then closed in layers using absorbable sutures. Dermabond was applied. A sterile bandage was applied. Proper device function was confirmed, and the patient was transferred to the postprocedure monitoring area for additional observation. Final device settings were as follows: Med[employer]onic Advisa MRI DR [id number] [id number] MRI compatible dual-chamber pacemaker; serial number [id number]; implanted May 21, 2017. DDD 60-130 beats per minute. Paced AV delay 180 msec. Sensed AV delay 150 msec. Atrial lead was a Medtronic [id number] serial number [id number] implanted May 21, 2017 bipolar polarity. P wave 7.8 mV, sensitivity 0.3 mV. Atrial impedance 618 Ohms. Atrial threshold 0.7 V at 0.5 msec. Amplitude 3.5 V at 0.4 msec. The ventricular lead was a Medtronic [id number] serial number [id number] implanted May 21, 2017 bipolar polarity. R wave 5.2 mV, sensitivity 0.9 mV. Ventricular impedance 758 Ohms. Ventricular threshold 0.4 V at 0.4 msec. Amplitude 3.5 V at 0.4 msec. MELISSA KRAUS M.D. [id number] cc: MD Mag Abdullahi MD MTDD
== END 2017-05-22 15:15 | disposition home or self-care (01) | DRG 171 ==
LOC: JER 10:43 → JERBED 13:13 → JICU 13:42
PROVIDERS: ADMIT Internal Medicine; ATTEND Registered Nurse
PROC: 5A1223Z Performance of Cardiac Pacing, Continuous (ICD-10-PCS; 2017-05-18)
PROC: 02HL3JZ Insertion of Pacemaker Lead into Left Ventricle, Percutaneous Approach (ICD-10-PCS; 2017-05-21)
PROC: 02H63JZ Insertion of Pacemaker Lead into Right Atrium, Percutaneous Approach (ICD-10-PCS; 2017-05-21)
PROC: 0JH606Z Insertion of Pacemaker, Dual Chamber into Chest Subcutaneous Tissue and Fascia, Open Approach (ICD-10-PCS; principal; 2017-05-21 15:00)
DX: I44.2 Atrioventricular block, complete (principal); R07.89 Other chest pain; R06.00 Dyspnea, unspecified; R53.83 Other fatigue; I11.9 Hypertensive heart disease without heart failure
CPT/HCPCS: 36415; 71010-TC; 71020-TC; 76000-TC; 80048; 80053; 80061; 82550; 83036; 83721; 83735; 83880; 84100; 84443; 84484; 85025; 85610; 85730; 86618; 93005; 93010; 93306-TC; 99285-25; J1644